=== PATIENT | female | born 1955 | race Caucasian/White ===

== ENCOUNTER 2025-02-16 19:13 | Emergency (ER) | payer MEDICARE, OTHER ==
[2025-02-16 19:38] LABS: #Basophils 0.05 10x3/uL (0.0-0.2); #Eosinophils 0.22 10x3/uL (0.0-0.5); #Monocytes 0.63 10x3/uL (0.0-1.1); #Neutrophils 3.78 10x3/uL (1.5-8.4); %Basophils 0.9 % (0.0-2.0); %Eosinophils 3.9 % (0.0-6.0); %Lymphocytes 17.3 % (18.0-47.0); %Monocytes 11.1 % (0.0-10.0); %Neutrophils 66.6 % (40.0-75.0); Hematocrit 31.8 % (34.9-44.5); Hemoglobin 10.8 g/dL (12.0-15.5); Mean Corpuscular Hemoglobin 29.7 pg (27.0-33.0); Mean Corpuscular Volume 87.4 fL (81.6-98.3); Platelet Count 267 10x3/uL (150-450); Red Blood Cell (RBC) Count 3.64 10x6/uL (3.90-5.03); White Blood Cell (WBC) Count 5.67 10x3/uL (3.5-10.5)
[2025-02-16 19:59] LABS: ALT (SGPT) 20 U/L (Less than 34); AST (SGOT) 32 U/L (11-34); Albumin 4.0 g/dL (3.1-4.5); Alkaline Phosphatase 100 U/L (40-110); Anion Gap 13 mmol/L (10-20); BUN (Urea Nitrogen) 24 mg/dL (9.8-20.1); Bilirubin, Total 0.2 mg/dL (0.3-1.2); Calc. Creatinine Clearance 0 mL/min (70-130); Calcium 8.8 mg/dL (7.8-10.44); Carbon Dioxide 22 mmol/L (23-31); Chloride 112 mmol/L (98-107); Globulin 3.2 g/dL (2.4-3.5); Glucose 132 mg/dL (83-110); Potassium 4.1 mmol/L (3.5-5.1); Sodium 143 mmol/L (136-145)
[2025-02-16 20:16] LABS: Acetaminophen Less than 10 mcg/mL (Less than 10); Salicylate Less than 8.0 mg/dL (Less than 8.0)
[2025-02-16 20:22] LABS: Troponin I Less than 0.010 ng/mL (< 0.028)
[2025-02-16] MEDS ORDERED: Buprenorphine 8mg/Naloxone 2mg per 1 FILM SL SCH (21:00)
[2025-02-16 21:06] LABS: Glucose, Urine (Dipstick) Normal (Negative); Leukocyte 500 (Negative); Protein, Urine (Dipstick) 30 mg/dl (Neg-Trace); Specific Gravity, Urine 1.015 (1.005-1.030)
[2025-02-16 21:16] LABS: Cocaine Metabolite Screen Negative (Negative); THC/Cannabinoid Screen PRELIM POSITIVE (Negative); Tricyclic Screen Negative (Negative)
[2025-02-16] MEDS ORDERED: Ondansetron PF 4 MG/2 ML Vial ONE (21:16)
[2025-02-16 21:23] LABS: CAUTI Indications for Culture Alt mental st,lethar; RBC/HPF 0-3 HPF (0-3); WBC/HPF 21-50 HPF (0-3)
[2025-02-16 21:24] LABS: Bacteria/HPF 4+ HPF (None Seen)
[2025-02-16 21:25] LABS: Urine Culture Reflex Yes Yes
[2025-02-16] MEDS ORDERED: Cephalexin 250 MG CAP ONE (22:07)
== END 2025-02-16 22:07 | disposition home or self-care (01) ==
LOC: CSHERS 19:13
DX: F11.23 Opioid dependence with withdrawal (principal); E11.9 Type 2 diabetes mellitus without complications
CPT/HCPCS: 71045; 80053; 80306; 80307; 81001; 82550; 84484; 85025; 87086; 93005; 96374; J2405